=== PATIENT | female | born 1985 | race Caucasian/White ===

== ENCOUNTER 2021-06-18 10:28 | Emergency (ER) | payer SELFPAY ==
[~2021-06-18] VITALS: Ht 157.5 cm; Wt 61.2 kg
[2021-06-18 10:44] VITALS: BP 144/82
--- NOTE | 2021-06-18 10:49 | NUR ---
PT STATED "I WANT TO LEAVE, I FELL BETTER NOW". Addendum: 06/18/21 at 1104 by [facility] PATIENT LEFT WITHOUT BEING SEEN BY DR. THOMAS. NO FURTHER CARE PROVIDED FOR PATIENT.
== END 2021-06-18 10:49 | disposition left against medical advice (07) ==
LOC: MED 10:28
DX: R51.9 Headache, unspecified (principal); F41.9 Anxiety disorder, unspecified; Z53.21 Procedure and treatment not carried out due to patient leaving prior to being seen by health care provider